=== PATIENT | male | born 1990 | race Caucasian/White ===

== ENCOUNTER 2018-01-16 18:00 | Observation (INO) | payer OTHER ==
[~2018-01-16] VITALS: Ht 182.9 cm; Wt 97.1 kg
[2018-01-16 18:52] LABS: BASOPHIL (%) 0.3 % (0-1); EOSINOPHIL (%) 2.1 % (0-5); EOSINOPHIL COUNT 0.2 K/uL (0-0.3); HEMATOCRIT 43.5 % (38.0-50.0); IMMATURE GRANULOCYTE (%) 0.4 % (0.0-0.7); LYMPHOCYTE (%) 28.8 % (15-42); LYMPHOCYTE COUNT 3.3 K/uL (1.0-2.8); MCH 28.9 PG (29.0-34.0); MCHC 34.5 G/DL (30.0-36.0); MCV 83.8 FL (86-99); MONOCYTE (%) 7.5 % (3-12); MONOCYTE COUNT 0.9 K/uL (0-0.8); NEUTROPHIL (%) 60.9 % (45-76); PLATELET COUNT 227 K/uL (156-360); RBC DIS.WIDTH-CV 12.2 % (11.8-14.6); RBC DIS.WIDTH-SD 37.1 % (39-53); RED BLOOD COUNT 5.19 M/uL (4.00-5.50); WHITE BLOOD COUNT 11.6 K/uL (4.1-10.2)
[2018-01-16 19:01] LABS: AMYLASE 52 IU/L (1-118); CHLORIDE 103 mEq/L (99-109); POTASSIUM 4.4 mEq/L (3.7-5.4); PTT 31.5 SEC (25-37); SODIUM 139 mEq/L (136-147)
[2018-01-16 19:02] LABS: GLUCOSE 100 mg/dL (70-99)
[2018-01-16 19:06] LABS: GFR ESTIMATE (CALCULATED) > 59 mL/min/ (58.99-99999); SERUM ETHYL ALCOHOL < 10 mg/dL
[2018-01-16 19:07] LABS: UREA NITROGEN (BUN) 12 mg/dL (9-23)
[2018-01-16 19:09] LABS: LIPASE 15 U/L (1.0-51.0)
[2018-01-16 19:14] LABS: TROP-I INTERPRETATION NEGATIVE; TROPONIN-I < 0.01 ng/mL (0.0-0.30)
[2018-01-16 19:46] LABS: APPEARANCE CLEAR ((CLEAR)); BILIRUBIN NEGATIVE; BLOOD NEGATIVE; COLOR STRAW ((YELLOW)); GLUCOSE (STRIP) NEGATIVE; KETONES NEGATIVE; LEUKOCYTES NEGATIVE; NITRITE NEGATIVE; PROTEIN (STRIP) NEGATIVE; SPECIFIC GRAVITY 1.008 (1.000-1.030); UCUL ADDED? NO; UROBILINOGEN 0.2 MG/DL (0.2-1.0)
[2018-01-16 20:14] LABS: AMPHETAMINE NEGATIVE (500 ng/mL); BARBITURATES NEGATIVE (200 ng/mL); BENZODIAZEPINES NEGATIVE (150 ng/mL); BUPRENORPHINE NEGATIVE (10 ng/mL); COCAINE NEGATIVE (150 ng/mL); METHADONE NEGATIVE (200 ng/mL); METHAMPHETAMINE NEGATIVE (500 ng/mL); OPIATES (MORPHINE) NEGATIVE (100 ng/mL); OXYCODONE NEGATIVE (100 ng/mL); PHENCYCLIDINE NEGATIVE (25 ng/mL); PROPOXYPHENE NEGATIVE (300 ng/mL); THC CANNABINOIDS NEGATIVE (50 ng/mL); TRICYCLIC ANTIDEPRESSANTS NEGATIVE (300 ng/mL)
[2018-01-16] MEDS ORDERED: CLARITIN,ALAVAR10 MG PO (20:26)
[2018-01-17 03:06] VITALS: BP 131/76
[2018-01-17 05:22] LABS: HDL CHOLESTEROL 36 MG/DL (Desirable>=40); LDL CHOLESTEROL 104 mg/dL (Desirable<100); NON-HDL CHOLESTEROL 115 mg/dL (Desirable<160); TOTAL CHOLESTEROL 151 mg/dL (Desirable<200); TRIGLYCERIDES 54 MG/DL (Normal: <150)
[2018-01-17 06:15] LABS: TROP-I INTERPRETATION NEGATIVE; TROPONIN-I < 0.01 ng/mL (0.0-0.30)
[2018-01-17 09:21] VITALS: BP 120/79
[2018-01-17 10:09] LABS: HEMOGLOBIN A1c (GLYCOHEMOGLOB) 5.4 % (Below 5.7)
[2018-01-17] MEDS ORDERED: MEDROL DOSEPAK4 MG PO (11:09)
[2018-01-17] MEDS ORDERED: ZOVIRAX400 MG PO (11:19)
[2018-01-17 11:50] VITALS: BP 135/66
[2018-01-17 13:07] LABS: LYME DISEASE SEROLOGY SCREEN NEGATIVE (NEGATIVE)
== END 2018-01-17 12:50 | disposition home or self-care (01) ==
LOC: EME 18:00 → EDOF 01-17 00:59 → ENRESERV 01-17 01:01 → 5WEST 01-17 02:49
PROVIDERS: Emergency Medicine; Hospitalist; Psychiatry & Neurology Clinical Neurophysiology
DX: G51.0 Bell's palsy (principal); G43.109 Migraine with aura, not intractable, without status migrainosus; J32.0 Chronic maxillary sinusitis; Z88.0 Allergy status to penicillin; Z79.82 Long term (current) use of aspirin
CPT/HCPCS: 70450; 70544; 70551; 80048; 80061; 81003; 82150; 83036; 83690; 84484; 85025; 85610; 85730; 86618; 86850; 86900; 86901; 93005; 93306; 99281; 99285; G0378; G0480; J1200; J1650; J1885; J2765; J7509